=== PATIENT | female | born 1975 | race Caucasian/White ===

== ENCOUNTER 2017-02-01 01:57 | Emergency (ER) | payer BC, OTHER ==
--- NOTE | 2017-02-01 02:28 | ERNOTE ---
Chest Pain/Cardiac HPI Chief Complaint: Chest Pain Time Seen by Provider: 02/01/17 02:17 Source: patient Exam Limitations: no limitations Immunizations: IMMUNIZATION HX Immunizations Up to Date Yes History of Influenza Vaccine Yes Hx Pneumococcal Vaccination No Allergies/Adverse Reactions: Allergies venlafaxine HCl [From Effexor] Allergy (Severe, Verified 02/01/17 02:11) anxiety sulfamethoxazole [From Bactrim] Allergy (Verified 02/01/17 02:12) trimethoprim [From Bactrim] Allergy (Verified 02/01/17 02:12) azithromycin [From Zithromax Z-Jeffrey] Adverse Reaction (Mild, Verified 02/01/17 02 :11) Nausea Home Medications: HOME MEDICATIONS Atenolol 12.5 mg PO DAILY 05/21/12 [Last Taken Unknown] Albuterol Sulfate [Proventil Hfa] 2 puff IH Q4H PRN 04/12/13 [Last Taken Unknown ] Famotidine 20 mg PO PRN PRN 02/01/17 [Last Taken Unknown] Narrative: right sided chest pressure onset around 21:00 and increasing. Not improved with H2 blockers. 01/03 Timing: getting worse Severity/Quality: moderate Location: other - right chest Chest Pain Radiation: shoulders - /scapula on the right Activities at Onset: none Associated Symptoms: Present: nausea. Absent: vomiting Review of Systems - Review of Systems Constitutional: Absent: recent illness EYE: Present: no symptoms reported ENT: Present: no symptoms reported Respiratory: Present: shortness of breath - slightly at times. Absent: cough, wheezing Cardiology: Present: See HPI. Absent: palpitations, syncope Gastrointestinal/Abdominal: Present: nausea. Absent: vomiting, constipation, abdominal pain Genitourinary: Present: See HPI, decreased urinary output Musculoskeletal: Present: back pain Skin: Absent: rash, lesions Neurological: Present: no symptoms reported Endocrine: Present: intolerance to cold Hematologic/Lymphatic: Present: no symptoms reported Psych: Present: no symptoms reported - Patient's Past Medical History Patient History - Medical: No pertinent hx Patient History - Cardiac/Respiratory: Other Patient History - Cancer: No Hx of Cancer Patient History - Surgical Procedures: Cholecystectomy, EGD - with polyp removal , Other Patient History - Other: None LMP (females 10-50): other - Social History Living Situations: home Psych History: Hx of Anxiety Smoking Status: Current some day smoker Alcohol Use: occasionally Drug Use: none - Immunizations Immunizations Up to Date: Yes Hx Pneumococcal Vaccination: No History of Influenza Vaccine: Yes Physical Exam - Physical Exam General Appearance: Present: wd/wn, alert, mild distress Head Exam: Present: normal inspection, no evidence of injury Eye Exam: Normal inspection: bilateral Ears, Nose, Throat: Present: normal ENT inspection Neck: Present: normal inspection, nontender Respiratory: Present: no respiratory distress, normal breath sounds, lungs clear Cardiovascular/Chest: Present: regular rate, rhythm, no murmur Gastrointestinal/Abdominal: Present: normal bowel sounds, nontender, nondistended Back Exam: Present: normal inspection, normal range of motion Extremity Exam: Present: normal inspection, normal range of motion Neurological Exam: Present: alert, oriented, normal mood/affect Skin Exam: Present: normal color, warm/dry Lymphatic Exam: Present: no adenopathy ED Progress - Results and Orders Patient's Lab Results:: I have reviewed the patient's lab results. Results and Orders: Laboratory Tests 02/01/17 02/01/17 02/01/17 02:30 02:30 02:30 WBC 7.4 Hgb 12.6 Hct 36.6 L Plt Count 227 PT 9.8 INR (Anticoag Therapy) 0.94 PTT (Ivan) 27.4 Sodium 139 Potassium 3.6 Chloride 103 Carbon Dioxide 26.2 Anion Gap 13.4 BUN 19 Creatinine 0.75 Random Glucose 106 Calcium 8.6 Total Bilirubin 0.4 AST 12 ALT 16 L Alkaline Phosphatase 65 Troponin I Less than 0.017 Total Protein 6.9 Albumin 3.5 - Vital Signs Patient's Vital Signs:: I have reviewed the patient's vital signs. Vital Signs: Vital Signs 02/01/17 02/01/17 02:02 02:04 Pulse Rate 65 61 Respiratory 12 Rate Blood Pressure 159/91 O2 Sat by Pulse 100 Oximetry - EKG EKG: NSR, no ST T wave changes EKG read: Interp. by me - X-Ray X-Ray #1 X-Ray: abdomen Interpretation: Interp. by me X-ray Comments: mild to mod stool retention. X-Ray #2 X-Ray: chest Interpretation: Interp. by me X-ray Comments: Nothing acute, Irregularity to left diaphragm also seen on 08/10/13. - Progress/Reassessment Chief Complaint: Chest Pain Progress:: Improved Progress Note-Subjective: 02/01/17 04:39 feeling better and more of a burning feeling now. 02/01/17 04:40 ordered GI coctail 02/01/17 05:03 GI coctail made her feel much better. Still has some "full" feeling Departure - Departure Clinical Impression: Chest pain Qualifiers: Chest pain type: unspecified Qualified Code(s): R07.9 - Chest pain, unspecified Disposition: Home Follow Up Needed Condition: Good Instructions: Esophageal Spasm, Nonspecific Chest Pain, [id number] Additional Instructions: See your regular doctor to discuss further work up possibly including EGD. Referrals: Jose Daniel Munoz, [Primary Care Provider] -
[2017-02-01 02:36] LABS: Hematocrit 36.6 % (37.0-47.0); Hemoglobin 12.6 gm/dL (12.5-16.0); Mean Corpuscular Hemoglobin 31.7 pg (27-31); Mean Corpuscular Hgb Conc 34.4 g/dl (32-36); Neutrophil # 5.1 K/mm3 (1.3-6.0); Neutrophil % 69.2 % (42-75.0); Platelet Count 227 K/mm3 (150-450); Red Blood Count 3.98 M/mm3 (4.2-5.4); Red Cell Distribution Width 12.2 % (11.5-14.0); White Blood Count 7.4 K/mm3 (4.0-10.5)
[2017-02-01 02:51] LABS: Prothrombin Time (Patient) 9.8 Seconds (9.4-11.4)
[2017-02-01 02:53] LABS: INR 0.94 INR (0.90-1.10); Partial Thrombolplastin Time 27.4 Seconds (24-32)
[2017-02-01 02:58] LABS: ALT 16 U/L (19-67); AST 12 U/L (0-48); Albumin * 3.5 gm/dl (3.4-5.0); Alkaline Phosphatase * 65 U/L (50-170); Anion Gap 13.4 mmol/L (6.8-13.8); BUN/Creatinine Ratio 25.3 (9.0-21.6); Bilirubin, Total 0.4 mg/dL (0.0-1.1); Blood Urea Nitrogen 19 mg/dL (3-23); Ca. Corrected For Albumin 8.7 mg/dL (8.4-10.2); Calcium * 8.6 mg/dL (7.9-10.9); Carbon Dioxide 26.2 mmol/L (24-32.6); Chloride 103 mmol/L (97-106); Glucose * 106 mg/dL (70-110); Potassium 3.6 mmol/L (3.4-4.6); Sodium 139 mmol/L (132-142); Total Protein 6.9 gm/dL (6.2-8.2); Troponin I Less than 0.017 ng/ml (0.00-0.10)
[2017-02-01] MEDS ORDERED: MAG HYDROX/ALUMINUM HYD/SIMETH 30 ML UDC PO ONE (04:37)
[2017-02-01] MEDS ORDERED: SUCRALFATE 1 G/10 ML UDC PO ONE (04:37)
[2017-02-01] MEDS ORDERED: LIDOCAINE HCL 20 ML UDC PO ONE (04:37)
--- OUTSIDE RECORDS SUMMARY | 2017-02-01 04:47 | XMS REPORT | Clinical Summary ---
:1975 Author Organization [email or web address] [place] [address] Care Team Providers Name Role Phone Unavailable Primary Care Provider Unavailable Source Comments This disclosure is being made pursuant to the [employer] program and maynot contain all information available regarding this [email or web address] Allergies Active Allergy Reactions Severity Noted Date Comments Sulfamethoxazole-Trimethoprim Swelling High 10/13/2016 Venlafaxine Anxiety Low 10/13/2016 Current Medications Be aware that medications may not be up to date as of this document. Alwaysverify current medications with the patient. Prescription Sig. Disp. Refills Start Date End Date Status PROAIR HFA 108 (90 Base) INHALE 1-2 PUFFS 0 08/16/2016 Active MCG/ACT inhaler EVERY 4-6 HOURS NEEDED atenolol (TENORMIN) 25 MG take 1/2 TAB by 3 09/24/2016 Active tablet oral route DAILY fluconazole (DIFLUCAN) take 1 tablet (150 0 09/02/2016 Active 150 MG tablet mg) by oral route once and repeat in 3 days Active Problems Not on file Family History Medical History Relation Name Comments Diabetes Brother Diabetes Cousin No Known Problems Father Diabetes Maternal Aunt Glaucoma Maternal Grandfather No Known Problems Mother Relation Name Status Comments Brother Cousin Father Maternal Aunt Maternal Grandfather Mother Social History Tobacco Use Types Packs/Day Years Used Date Current Some Day Smoker Sex Assigned at Date Recorded Not on file Last Filed Vital Signs Vital Sign Reading Time Taken Blood Pressure 120/80 09/21/2016 3:11 PM CDT Pulse 50 09/21/2016 3:11 PM CDT Temperature 36.3 C (97.3 F) 09/21/2016 3:11 PM CDT Respiratory Rate 12 09/21/2016 3:11 PM CDT Oxygen Saturation 98% 09/21/2016 3:11 PM CDT Inhaled Oxygen Concentration - - Weight 59.4 kg (131 lb) 09/21/2016 3:11 PM CDT Height 170.2 cm (5' 7") 09/21/2016 3:11 PM CDT Body Mass Index 20.52 09/21/2016 3:11 PM CDT Plan of Treatment Health Maintenance Due Date Last Done Comments Pneumococcal Medium Risk 19-64 yo (1 of 1 - PPSV23) 1993 Tetanus/Pertussis (1 - Tdap) 1993 Pap Smear 1995 INFLUENZA IMMUNIZATION (#1) 2016 Results Not on filefrom Last 3 Months Insurance Payer Benefit Plan / Group Subscriber ID Type Phone Address [facility] [id number] [address] [place] [phone]
--- OUTSIDE RECORDS SUMMARY | 2017-02-01 04:47 | XMS REPORT | Encounter Summary ---
:1975 Author Organization [facility] [employer] [facility] [place] [address] Care Team Providers Name Role Phone Unavailable Primary Care Provider Unavailable Encounter Details Date Type Department Care Team Description 10/13/2016 Ophth Exam [facility] Emanuel Merritt, OD Examination of eyes and vision (Primary Dx); Ophthalmology [address] [place]; [address] Hypermetropia, bilateral [place] [address] [place] [address] [phone] Social History Tobacco Use Types Packs/Day Years Used Date Current Some Day Smoker Sex Assigned at Date Recorded Not on file as of this encounter Progress Notes Emanuel Merritt, OD - 10/13/2016 9:56 AM CDTMyokymia Try some antihistamines Sample of pazeo given Ed pt on stress in this encounter Plan of Treatment Not on fileas of this encounter Visit Diagnoses Diagnosis Examination of eyes and vision - Primary Myokymia Myoclonus Hypermetropia, bilateral in this encounter
--- OUTSIDE RECORDS SUMMARY | 2017-02-01 04:48 | XMS REPORT | Encounter Summary ---
:1975 Author Organization [employer] [place] [address] Care Team Providers Name Role Phone Unavailable Primary Care Provider Unavailable Encounter Details Date Type Department Care Team Description 10/08/2016 Orders Only [facility] Provider, Not In Centralized Scanning System Social History Tobacco Use Types Packs/Day Years Used Date Never Assessed Sex Assigned at Date Recorded Not on file as of this encounter Plan of Treatment Not on fileas of this encounter Results TB Skin Test (09/22/2016)in this encounter Visit Diagnoses Not on filein this encounter
[2017-02-01 05:03] VITALS: BP 159/89
== END 2017-02-01 05:17 | disposition home or self-care (01) ==
LOC: ER 01:57
DX: R07.9 Chest pain, unspecified (principal); F17.200 Nicotine dependence, unspecified, uncomplicated